=== PATIENT | female | born 1995 | race Caucasian/White ===

== ENCOUNTER 2019-07-31 16:01 | Emergency (ER) | payer SELFPAY ==
[~2019-07-31] VITALS: Ht 157.5 cm; Wt 108.9 kg
[2019-07-31 16:22] VITALS: BP 135/75
--- NOTE | 2019-07-31 17:17 | NUR ---
PT AMBULATED TO BED 03
--- NOTE | 2019-07-31 17:17 | NUR ---
PATIENT AMBULATED TO BED 3.
--- NOTE | 2019-07-31 17:25 | NUR ---
C/O PAIN BEHIND L EAR X 5DAYS, L FACIAL DROOPING/PARALYSIS X LAST NIGHT. FULL CLEAR SPEECH. NO HAND HEALTH ADVOCATE WEAKNESS. STEADY GAIT. MED HX: DENIES
[2019-07-31] MEDS ORDERED: methylPREDNISolone SS 125 MG/2 ML VIAL IM ONE (17:35)
--- NOTE | 2019-07-31 17:48 | NUR ---
Patient discharged with v/s stable. Written and verbal after care instructions given and explained. Patient alert, oriented and verbalized understanding of instructions. Ambulatory with steady gait. All questions addressed prior to discharge. ID band removed. Patient advised to follow up with PMD. Rx of ACYCLOVIR AND PREDNISONE given. Patient educated on indication of medication including possible reaction and side effects. Opportunity to ask questions provided and answered.
[2019-07-31 17:50] VITALS: BP 135/75
== END 2019-07-31 17:48 | disposition home or self-care (01) ==
LOC: MED 16:01
DX: G51.0 Bell's palsy (principal); H92.02 Otalgia, left ear
CPT/HCPCS: 96372; 99283; J2930